=== PATIENT | male | born 1985 | race Caucasian/White ===

== ENCOUNTER 2016-10-07 20:15 | Emergency (ER) | payer OTHER | END 2016-10-08 02:51 | disposition home or self-care (01) | LOC: ER 20:15 | PROC: 0HQMXZZ Repair Right Foot Skin, External Approach (ICD-10-PCS; principal; 2016-10-07) | DX: S91.111A Laceration without foreign body of right great toe without damage to nail, initial encounter (principal); S91.201A Unspecified open wound of right great toe with damage to nail, initial encounter; W55.19XA Other contact with horse, initial encounter | CPT/HCPCS: 73630-RT; 90471; 90714; 96372; 99284; J0690 ==